=== PATIENT | female | born 1975 | race Caucasian/White ===

== ENCOUNTER 2021-08-07 23:39 | Emergency (ER) | payer OTHER ==
[~2021-08-07] VITALS: Ht 174 cm; Wt 102.8 kg
[2021-08-07] MEDS ORDERED: TRAZ1TAB14 PO (23:51)
[2021-08-07] MEDS ORDERED: VIBE75TA PO (23:51)
[2021-08-07] MEDS ORDERED: LEXA5TAB13 PO (23:51)
[2021-08-07] MEDS ORDERED: TELM1TAB37 PO (23:51)
[2021-08-07] MEDS ORDERED: PANT40TA29 PO (23:51)
[2021-08-07] MEDS ORDERED: TOPI50TA9 PO (23:51)
[2021-08-08 01:47] LABS: BASO # 0.1 10^3/uL (0.0-0.2); BASO % 0.7 % (0.0-1.0); EOS # 0.1 10^3/uL (0.0-0.5); HEMATOCRIT 34.1 % (36.0-47.0); HEMOGLOBIN 11.6 g/dl (12.0-15.5); LYMPH # 2.7 10^3/uL (1.5-5.0); MEAN CORPUSCULAR HEMOGLOBIN 32.7 pg (27.0-33.0); MEAN CORPUSCULAR VOLUME 96.1 fl (80.0-96.0); MONO # 0.8 10^3/uL (0.0-0.8); MONO % 9.4 % (2.0-8.0); NEUTROPHILS % 57.6 % (36.0-66.0); PLATELET COUNT, AUTOMATED 357 10^3/uL (150-450); RED BLOOD COUNT 3.55 10^6/uL (4.00-5.40); WHITE BLOOD COUNT 8.6 10^3/uL (4.0-10.0)
[2021-08-08 02:19] LABS: CK-MB VALUE MASS 2.4 NG/ML (<3.6); MB/CK RELATIVE INDEX 1.39 (< OR =4)
[2021-08-08 02:21] LABS: BLOOD UREA NITROGEN 10 MG/DL (7-18); CALCIUM LEVEL 8.7 MG/DL (8.5-10.1); CARBON DIOXIDE LEVEL 25 MEQ/L (21-32); CHLORIDE LEVEL 108 MEQ/L (98-107); CREATININE FOR GFR 0.83 MG/DL (0.55-1.30); GLOMERULAR FILTRATION RATE > 60.0 (>58); GLUCOSE, FASTING 88 MG/DL (70-100); MAGNESIUM LEVEL 2.1 MG/DL (1.8-2.4); NT-PRO BNP 81 PG/ML (<125); POTASSIUM SERUM 3.9 MEQ/L (3.5-5.1); SODIUM LEVEL 139 MEQ/L (136-145)
[2021-08-08] MEDS ORDERED: ISOVUE-370 76% 100ML VIAL As Ordered ONE (04:05)
[2021-08-08 08:38] VITALS: BP 142/83
== END 2021-08-08 08:40 | disposition home or self-care (01) ==
LOC: M ED 23:39
DX: R06.02 Shortness of breath (principal); R79.1 Abnormal coagulation profile; K44.9 Diaphragmatic hernia without obstruction or gangrene; K80.20 Calculus of gallbladder without cholecystitis without obstruction; R22.43 Localized swelling, mass and lump, lower limb, bilateral; F32.9 Major depressive disorder, single episode, unspecified; K21.9 Gastro-esophageal reflux disease without esophagitis; R56.9 Unspecified convulsions; Z88.8 Allergy status to other drugs, medicaments and biological substances
CPT/HCPCS: 36415; 71045; 71275; 80048; 82550; 82553; 83735; 83880; 84484; 85025; 85379; 87486; 87581; 87633; 87798; 93005; 93970; 99285; Q9967